=== PATIENT | female | born 1990 | race Two or more races ===

== ENCOUNTER 2018-04-03 17:05 | Emergency (ER) | payer OTHER ==
[~2018-04-03] VITALS: Ht 160 cm; Wt 93.4 kg
== END 2018-04-03 23:45 | disposition home or self-care (01) ==
LOC: ER 17:05
DX: O20.0 Threatened abortion (principal); Z34.81 Encounter for supervision of other normal pregnancy, first trimester

== ENCOUNTER 2018-10-22 12:29 | Emergency (ER) | payer OTHER ==
[~2018-10-22] VITALS: Ht 160 cm; Wt 108.9 kg
[2018-10-22] MEDS ORDERED: [UNRECOGNIZED DRUG - OTHER] (12:39)
== END 2018-10-22 15:22 | disposition home or self-care (01) ==
LOC: ER 12:29
DX: R19.7 Diarrhea, unspecified (principal)

== ENCOUNTER 2018-10-30 13:30 | Inpatient (IN) | payer OTHER ==
[~2018-10-30] VITALS: Ht 165.1 cm; Wt 3.2 kg
[~2018-10-30 13:30] MED LIST: [UNRECOGNIZED DRUG - OTHER]
== END 2018-11-05 16:11 | disposition home or self-care (01) | DRG 784 ==
LOC: O/R 11-01 06:13 → OB/GYN 11-01 06:13
PROVIDERS: ADMIT Obstetrics & Gynecology
PROC: 0UL60ZZ Occlusion of Left Fallopian Tube, Open Approach (ICD-10-PCS; 2018-11-01)
PROC: 4A1HXCZ Monitoring of Products of Conception, Cardiac Rate, External Approach (ICD-10-PCS; 2018-11-01)
PROC: 0T9B70Z Drainage of Bladder with Drainage Device, Via Natural or Artificial Opening (ICD-10-PCS; 2018-11-01)
PROC: 10D00Z1 Extraction of Products of Conception, Low, Open Approach (ICD-10-PCS; principal; 2018-11-01 09:15)
DX: O82 Encounter for cesarean delivery without indication (principal); K91.31 Postprocedural partial intestinal obstruction; Z3A.38 38 weeks gestation of pregnancy; Z37.0 Single live birth; Z30.2 Encounter for sterilization; Z22.330 Carrier of Group B streptococcus; Z90.721 Acquired absence of ovaries, unilateral